=== PATIENT | female | born 1980 | race Caucasian/White ===

== ENCOUNTER 2018-08-21 17:17 | Emergency (ER) | payer BC, OTHER ==
[2018-08-21] MEDS ORDERED: MAGNE/ALUM HYDROXD 30 ML UCUP ONE (18:22)
[2018-08-21] MEDS ORDERED: LIDOCAINE VISCOUS 2% SOLN 15 ML UDC ONE (18:22)
[2018-08-21 18:28] LABS: Absolute Lymphocytes (CBC) 2.6 K/uL (0.7-4.9); Absolute Monocytes 0.4 K/uL (0.1-1.3); Absolute Neutrophil 3.2 K/uL (1.8-8.0); Eosinophils % 2.8 % (0-4.4); Hematocrit 38.7 % (36.0-45.0); MPV 8.9 fL (7.6-11.3); Monocytes % 6.9 % (3.3-12.3); RBC Red Blood Cell Count 4.38 M/uL (3.86-4.86)
[2018-08-21 18:45] LABS: Albumin 4.1 g/dL (3.4-5.0); Bilirubin Direct 0.2 mg/dL (0-0.2); Bilirubin Total 0.9 mg/dL (0.2-1.0); Potassium 3.8 mmol/L (3.5-5.1); Protein, Total 7.3 g/dL (6.4-8.2)
--- NOTE | 2018-08-21 19:29 | RAD REPORT ---
EXAM DESCRIPTION: CTAbdomen Pelvis W Contrast - 08/21/2018 7:14 pm CLINICAL HISTORY: Abdominal pain. epigastric LUQ pain. s/p gastric sleeve. COMPARISON: No comparisons TECHNIQUE: Biphasic CT imaging of the abdomen and pelvis was performed with 100 ml non-ionic IV cont rast. All CT scans are performed using dose optimization technique as appropriate and may include automated exposure control or mA/KV adjustment according to patient size. FINDINGS: The lung bases are clear.Postsurgical changes of a gastric sleeve. Cholecystectomy clips. The liver, spleen, pancreas, adrenal glands and right kidney are within normal limits. 8 mm stone is present mid-pole left kidney without hydronephrosis. No bowel obstruction, free air, free fluid or abscess. The appendix is normal. No evidence of signi ficant lymphadenopathy. No suspicious bony findings. IMPRESSION: No acute intra-abdominal or pelvic finding. 8 mm nonobstructing left renal stone.
--- NOTE | 2018-08-21 20:21 | ER ---
Nurse's Notes [facility] Name: Susy Vail Age: 37 yrs Sex: Female : 1980 Arrival Date: 08/21/2018 Time: 17:21 Bed 20 Private MD: Diagnosis: Peptic ulcer;left kidney stone, undescended Presentation: 08/21 17:31 Presenting complaint: Patient states: the Monday before i started feeling tw2 some pain on my LEFT side of my stomach, i thought it was trapped gas, Monday i could barely stand up straight, the pain has gotten worse whenever i try to eat or drink, i made an appt with my dr at the [facility] did lab work, i am leaving the country tomorrow, the pain has gotten better i was at a 7 in the most painful parts of this i am at a 2 now, clear liquid diet for 5 days, i had a gastric sleeve done in 2016, i just need to get checked out, 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 Transition of care: patient was not received from another setting of care. Onset of symptoms was August 21, 2018. Risk Assessment: Do you want to hurt yourself or someone else? Patient reports no desire to harm self or others. Initial Sepsis Screen: Does the patient meet any 2 criteria? No. Patient's initial sepsis screen is negative. Does the patient have a suspected source of infection? No. Patient's initial sepsis screen is negative. Care prior to arrival: None. 17:31 Method Of Arrival: Ambulatory tw2 17:31 Acuity: RUTH 3 tw2 Triage Assessment: 17:34 General: Appears in no apparent distress. Behavior is calm, cooperative, appropriate tw2 for age. Pain: Complains of pain in left upper quadrant and left lower quadrant. GI: Reports lower abdominal pain, upper abdominal pain, intolerance of food. 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 - Social history:: Smoking status: Patient/guardian denies using tobacco, Patient/guardian denies using alcohol. - Ebola Screening: : Patient negative for fever greater than or equal to 101.5 degrees Fahrenheit, and additional compatible Ebola Virus Disease symptoms Patient denies exposure to infectious person Patient denies travel to an Ebola-affected area in the 21 days before illness onset. Screenin:40 Abuse screen: Denies threats or abuse. Denies injuries from another. Nutritional hj screening: No deficits noted. Tuberculosis screening: No symptoms or risk factors identified. Fall Risk None identified. Assessment: 17:40 General: Appears in no apparent distress. uncomfortable, Behavior is calm, cooperative, hj appropriate for age. Pain: Complains of pain in left lower quadrant and left upper quadrant. Neuro: Level of Consciousness is awake, alert, obeys commands, Oriented to person, place, time, situation, Appropriate for age. Cardiovascular: Capillary refill < 3 seconds Patient's skin is warm and dry. Respiratory: Airway is patent Respiratory effort is even, unlabored, Respiratory pattern is regular, symmetrical. GI: Bowel sounds present X 4 quads. Abd is soft. : No signs and/or symptoms were reported regarding the genitourinary system. EENT: No signs and/or symptoms were reported regarding the EENT system. Derm: No signs and/or symptoms reported regarding the dermatologic system. Musculoskeletal: No signs and/or symptoms reported regarding the musculoskeletal system. 18:29 Reassessment: Patient and/or family updated on plan of care and expected duration. Pain hj level reassessed. Patient is alert, oriented x 3, equal unlabored respirations, skin warm/dry/pink. awaiting results and POC;. 19:19 Reassessment: Patient appears in no apparent distress at this time. Patient and/or cc3 family updated on plan of care and expected duration. Pain level reassessed. Patient is alert, oriented x 3, equal unlabored respirations, skin warm/dry/pink. Received this female patient from morning shift MEET Márquez as a case of abdominal pain, patient just came back from CT scan department awaiting result. With IV cannula gauge 20 at the right ACV saline locked. Patient denies pain at this time. 20:30 Reassessment: Patient appears in no apparent distress at this time. Patient and/or cc3 family updated on plan of care and expected duration. Pain level reassessed. Patient is alert, oriented x 3, equal unlabored respirations, skin warm/dry/pink. Dr. Neely discharged the patient home with prescription given. IV cannula removed and patient left ER vitally stable and ambulatory. Patient denies pain at this time. Patient states feeling better. Patient states symptoms have improved. Vital Signs: 17:34 BP 131 / 86; Pulse 56; Resp 17; Temp 97.6(TE); Pulse Ox 99% on R/A; Weight 73.94 kg tw2 (R); Height 5 ft. 7 in. (170.18 cm); Pain 2/10; 18:29 BP 128 / 85; Pulse 60; Resp 18; Pulse Ox 100% on R/A; hj 18:33 BP 120 / 64; Pulse 57; Resp 18; Pulse Ox 98% on R/A; hj 19:21 BP 112 / 82; Pulse 54; Resp 17 S; Temp 98.3(O); Pulse Ox 99% on R/A; cc3 20:14 BP 116 / 87; Pulse 59; Resp 16 S; Temp 98.3(O); Pulse Ox 99% on R/A; cc3 17:34 Body Mass Index 25.53 (73.94 kg, 170.18 cm) tw2 ED Course: 17:21 Patient arrived in ED. mr 17:34 Triage completed. tw2 17:34 Arm band placed on. tw2 17:37 Willi Esquivel, MEET is Primary Nurse. hj 17:39 Abdulaziz Neely MD is Attending Physician. ps1 17:41 Patient has correct armband on for positive identification. Placed in gown. Bed in low hj position. Call light in reach. Side rails up X 1. Adult w/ patient. 18:10 Radiology exam delayed due to lab results not completed at this time. (BUN/Creatinine) vm2 IV insertion attempt and/or patient not having appropriate IV at this time. 18:15 Initial lab(s) drawn, by me, sent to lab. Inserted saline lock: 20 gauge in right hj antecubital area, using aseptic technique. Blood collected. 18:27 Radiology exam delayed due to lab results not completed at this time. (BUN/Creatinine). vm2 19:14 CT Abd/Pelvis - IV Contrast Only In Process Unspecified. EDMS 20:19 Maninder Carcamo MD is Referral Physician. ps1 20:30 No provider procedures requiring assistance completed. IV discontinued, intact, cc3 bleeding controlled, No redness/swelling at site. Pressure dressing applied. Administered Medications: 18:03 Drug: GI Cocktail without - (Maalox Suspension 30 ml, Lidocaine Liquid 2 % 15 hj ml) Route: PO; 18:34 Follow up: Response: No adverse reaction hj Outcome: 20:20 Discharge ordered by MD. ps1 20:30 Discharged to home ambulatory. cc3 20:30 Condition: stable 20:30 Discharge instructions given to patient, Instructed on discharge instructions, follow up and referral plans. medication usage, Demonstrated understanding of instructions, follow-up care, medications, Prescriptions given X 3. 20:35 Patient left the ED. cc3 Signatures: Dispatcher [employer] EDKY Linda HarleyWilli RN RN hj Fernanda Varela RN RN 2 Zelda Holt 2 Abdulaziz Neely MD MD ps1 Lilly Marshall cc3 Corrections: (The following items were deleted from the chart) 19:41 19:21 BP 112 / 82; Pulse 54bpm; Resp 17bpm; Spontaneous; Pulse Ox 99% RA; Temp 97.8F cc3 Oral; cc3
--- NOTE | 2018-08-21 20:21 | EDPHYS ---
Physician Documentation [facility] Name: Susy Vail Age: 37 yrs Sex: Female : 1980 Arrival Date: 08/21/2018 Time: 17:21 Bed 20 Private MD: ED Physician Abdulaziz Neely HPI: 08/21 20:15 This 37 yrs old Female presents to ER via Ambulatory with complaints of ps1 Abdominal Pain. 20:15 patient states that the pain has gone on for over a couple of weeks. Patient went to [address] physician and had labs drawn and she put herself on a liquid diet. She states that the pain is localized to the epigastrium and LUQ. No blood in stools. Hx of gastric sleeve a couple of years ago. Patient states that the pain is worse with eating. 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 Pain is described as dullness. No medications have helped thus far. Not a drinker, smoker. . 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 - Social history:: Smoking status: Patient/guardian denies using tobacco, Patient/guardian denies using alcohol. - Ebola Screening: : Patient negative for fever greater than or equal to 101.5 degrees Fahrenheit, and additional compatible Ebola Virus Disease symptoms Patient denies exposure to infectious person Patient denies travel to an Ebola-affected area in the 21 days before illness onset. ROS: 20:15 Constitutional: Negative for fever, chills, and weight loss, Eyes: Negative for injury, ps1 pain, redness, and discharge, ENT: Negative for injury, pain, and discharge, Cardiovascular: Negative for chest pain, palpitations, and edema, Respiratory: Negative for shortness of breath, cough, wheezing, and pleuritic chest pain, Back: Negative for injury and pain, MS/Extremity: Negative for injury and deformity, Skin: Negative for injury, rash, and discoloration, Neuro: Negative for headache, weakness, numbness, tingling, and seizure. 20:15 Abdomen/GI: Positive for abdominal pain. Exam: 20:15 Constitutional: This is a well developed, well nourished patient who is awake, alert, ps1 and in no acute distress. Head/Face: Normocephalic, atraumatic. Eyes: Pupils equal round and reactive to light, extra-ocular motions intact. Lids and lashes normal. Conjunctiva and sclera are non-icteric and not injected. ENT: Nares patent. No nasal discharge, no septal abnormalities noted. Tympanic membranes are normal and external auditory canals are clear. Oropharynx with no redness, swelling, or masses, exudates, or evidence of obstruction, uvula midline. Mucous membranes moist. Chest/axilla: Normal chest wall appearance and motion. Nontender with no deformity. No lesions are appreciated. Cardiovascular: Regular rate and rhythm. No gallops, murmurs, or rubs. Normal PMI, no JVD. No pulse deficits. Respiratory: Lungs have equal breath sounds bilaterally, clear to auscultation and percussion. No rales, rhonchi or wheezes noted. No increased work of breathing, no retractions or nasal flaring. Skin: Warm, dry with normal turgor. Normal color with no rashes, no lesions, and no evidence of cellulitis. MS/ Extremity: Pulses equal, no cyanosis. Neurovascular intact. Full, normal range of motion. Neuro: Awake and alert, GCS 15, oriented to person, place, time, and situation. Cranial nerves II-XII grossly intact. Sensory grossly intact. 20:15 Abdomen/GI: Inspection: abdomen appears normal, Bowel sounds: normal, Palpation: mild abdominal tenderness, in the epigastric area and left upper quadrant, post surgical scar. striations. Vital Signs: 17:34 BP 131 / 86; Pulse 56; Resp 17; Temp 97.6(TE); Pulse Ox 99% on R/A; Weight 73.94 kg tw2 (R); Height 5 ft. 7 in. (170.18 cm); Pain 2/10; 18:29 BP 128 / 85; Pulse 60; Resp 18; Pulse Ox 100% on R/A; hj 18:33 BP 120 / 64; Pulse 57; Resp 18; Pulse Ox 98% on R/A; hj 19:21 BP 112 / 82; Pulse 54; Resp 17 S; Temp 98.3(O); Pulse Ox 99% on R/A; cc3 20:14 BP 116 / 87; Pulse 59; Resp 16 S; Temp 98.3(O); Pulse Ox 99% on R/A; cc3 17:34 Body Mass Index 25.53 (73.94 kg, 170.18 cm) tw2 MDM: 18:02 Patient medically screened. ps1 20:18 Data reviewed: vital signs, nurses notes, lab test result(s), radiologic studies, and ps1 as a result, I will discharge patient. Counseling: I had a detailed discussion with the patient and/or guardian regarding: the historical points, exam findings, and any diagnostic results supporting the discharge/admit diagnosis, lab results, radiology results, the need for outpatient follow up, a peer educator. 08/21 18:02 Order name: Creatinine for Radiology; Complete Time: 18:51 [facility] 08/21 18:02 Order name: CBC with Diff; Complete Time: 18:51 [facility] 08/21 18:02 Order name: Hepatic Function; Complete Time: 18:51 [facility] 08/21 18:02 Order name: Lipase; Complete Time: 18:51 [facility] 08/21 18:02 Order name: CMP; Complete Time: 18:51 [facility] 08/21 18:02 Order name: CT Abd/Pelvis - IV Contrast Only; Complete Time: 19:50 [facility] 08/21 17:46 Order name: Urine Dipstick-Ancillary (obtain specimen); Complete Time: 17:59 08/21 17:46 Order name: Urine Test (obtain specimen); Complete Time: 17:59 08/21 18:02 Order name: IV Saline Lock; Complete Time: 18:16 [facility] 08/21 18:02 Order name: Labs collected and sent; Complete Time: 18:16 ps1 Administered Medications: 18:03 Drug: GI Cocktail without - (Maalox Suspension 30 ml, Lidocaine Liquid 2 % 15 hj ml) Route: PO; 18:34 Follow up: Response: No adverse reaction Disposition: 08/21/18 20:20 Discharged to Home. Impression: Peptic ulcer, left kidney stone, undescended. - Condition is Stable. - Discharge Instructions: Peptic Ulcer, Kidney Stones, Syyf-nv-Bzow, Food Choices for Peptic Ulcer Disease. - Prescriptions for omeprazole 40 mg Oral capsule,delayed release(DR/EC) - take 1 capsule by ORAL route once daily; 30 capsule. Bentyl 10 mg Oral Capsule - take 1 capsule by ORAL route every 6 hours As needed; 40 capsule. Carafate 1 gram Oral Tablet - take 1 tablet by ORAL route 4 times per day take on an empty stomach, beginning on waking and last dose at bedtime; 100 tablet. - Medication Reconciliation Form, Thank You Letter, Antibiotic Education, Prescription Opioid Use form. - Follow up: Maninder Carcamo MD; When: As needed; Reason: Further diagnostic work-up, Recheck today's complaints, Continuance of care, Re-evaluation by your physician. - Problem is new. - Symptoms are unchanged. Signatures: Dispatcher [employer] EDMS Willi Esquivel RN RN hj Fernanda Varela RN RN tw2 Abdulaziz Neely MD MD ps1 Lilly Marshall cc3 Corrections: (The following items were deleted from the chart) 20:35 20:20 08/21/2018 20:20 Discharged to Home. Impression: Peptic ulcer; left kidney stone, cc3 undescended. Condition is Stable. Forms are Medication Reconciliation Form, Thank You Letter, Antibiotic Education, Prescription Opioid Use. Follow up: Maninder Carcamo; When: As needed; Reason: Further diagnostic work-up, Recheck today's complaints, Continuance of care, Re-evaluation by your physician. Problem is new. Symptoms are unchanged. ps1
== END 2018-08-21 20:35 | disposition home or self-care (01) ==
LOC: ER 17:17
DX: N20.0 Calculus of kidney (principal); K27.9 Peptic ulcer, site unspecified, unspecified as acute or chronic, without hemorrhage or perforation
CPT/HCPCS: 36415; 74177; 80053; 80076; 83690; 85025; 99284; Q9967

== ENCOUNTER 2021-10-12 19:11 | Emergency (ER) | payer BC, OTHER ==
--- OUTSIDE RECORDS SUMMARY | 2021-10-12 19:14 | XMS REPORT | Continuity of Care Document ---
:1980 Author Organization [facility] t Address 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 00:00: [address] Branch Postmenopa Postmenopa Disease Active U nivers usal HRT usal HRT 3-22 ity of (hormone (hormone 00:00: [place] replacemen replacemen 00 Me dical t therapy) t therapy) Br anch Uterus, Uterus, Disease Active Univers adenomyosi adenomyosi 3-22 it y of s s 00:00: [address] Branch History of History of Disease Active U nivers breast breast 3-22 ity of biopsy biopsy 00:00: [address] Family Family Disease Active Univers history of history of 3-22 [place] of malignant [place] of breast of breast Bran ch Allergies, Adverse Reactions, Alerts This patient has no known allergies or adverse reactions. Social History Social Habit Start Date Stop Date Quantity Comments Source History SDOH University o f Alcohol Frequency [place] [facility] History SDOH University o f Alcohol Std [place] [facility] Drinks [facility] History [facility] University o f Alcohol Binge [place] [facility] Alcohol intake 2021-07-06 2021-07-06 Current drinker Unive rsity of 00:00:00 00:00:00 of alcohol [place] [facility] (finding) Branch Exposure to 2021-06-03 2021-07-03 Not sure [facility] SARS-CoV-2 00:00:00 08:33:00 [facility] (event) Branch Alcohol Comment 2019-03-25 2019-03-25 occ Universit y of 00:00:00 00:00:00 [facility] Tobacco use and 2019-03-25 2019-03-25 Never used Universit y of exposure 00:00:00 00:00:00 [facility] Sex Ass[birth year] At [birth year] Universit y of 00:00:00 00:00:00 [facility] Smoking Status Start Date Stop Date Source Never smoker [facility] Medications Ordered Filled Start Stop Current Ordering Indication Dosage Frequency Signature Comments Components Source Medication Medication Date Date Medication? Clinician (SIG) Name Name desog-e.est Yes [id number] 1{tbl} Take 1 Univers radioL/e.es 6-28 tablet by ity of tradioL 00:00: mouth [place] (VOLNEA, 00 daily. Medical 28,) Branch 0.15-0.02 mgx21 /0.01 mg x 5 per tablet desog-e.est Yes [id number] 1{tbl} Take 1 Univers radioL/e.es 3-22 tablet by ity of tradioL 00:00: mouth [place] (MIRCETTE, 00 daily. Medical 28,) Branch 0.15-0.02 mgx21 /0.01 mg x 5 per tablet desog-e.est 2021- No [id number] 1{tbl} Take 1 Univers radioL/e.es 3-22 06-28 tablet by it y of tradioL 00:00: 00:00 mouth [place] (M[place], 00 :00 daily. 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 2021- No [id number] TAKE 1 Univers REL-ETHINYL 2-18 06-08 TABLET BY it y of ESTRADIOL 00:00: 00:00 MOUTH [place] 0.1-20 00 :00 EVERY DAY Medical mg-mcg per Branch tablet Immunizations Ordered Filled Immunization Date Status Comments Sour e Immunization Name Name SARS-COV-2 COVID-19 2020-06-12 Completed Unive rsity of MODERNA VACCINE 00:00:00 [facility] SARS-COV-2 COVID-19 2020-06-12 Completed Unive rsity of MODERNA VACCINE 00:00:00 [facility] SARS-COV-2 COVID-19 2020-05-15 Completed Unive rsity of MODERNA VACCINE 00:00:00 [facility] SARS-COV-2 COVID-19 2020-05-15 Completed Unive rsity of MODERNA VACCINE 00:00:00 [facility] Influenza Virus 2019-02-06 Completed Universit y of Vaccine Quad .5 mL 00:00:00 [facility] IM 6+ MO Branch Influenza Virus 2019-02-06 Completed Universit y of Vaccine Quad .5 mL 00:00:00 [facility] 6+ MO Branch Vital Signs Vital Name Observation Time Observation Value Comments Source Systolic blood 2021-06-08 19:22:00 118 mm[Hg] Univer sity of [place] pressure [facility] Diastolic blood 2021-06-08 19:22:00 70 mm[Hg] Unive rsity of [facility] Heart rate 2021-06-08 19:22:00 56 /min [facility] Body weight 2021-06-08 19:22:[address] [facility] BMI 2021-06-08 19:22:00 26.89 kg/m2 [facility] Procedures This patient has no known procedures. Encounters Start End Encounter Admission Attending Care Care Encounter Source Date/Time Date/Time Type Type Clinicians Facility Department ID 2021-08-[address] [facility] [id number] Common 16:16:02 Tonie Spirit - [facility] 2021-09-14 2021-09-14 VANNESA Anderson [id number] Univers 00:00:00 00:00:00 Edil [facility] [id number] ity of CLEAR [id number] Trupti FREIRE [id number] [place] [address] Branch OFFICE BUILDING 2021-08-31 2021-08-31 ambulatory [facility] [id number] Common 00:00:00 00:00:00 [facility] 2021-06-08 2021-06-[address] [facility] [id number] Univers 14:00:00 15:36:28 Visit Edil [facility] [id number] ity of CLEAR [id number] Trupti FREIRE [id number] [place] [address] Branch OFFICE BUILDING Results This patient has no known results.
[2021-10-12] MEDS ORDERED: HYDROCODONE/APAP 10/325 TAB ONE (19:49)
--- NOTE | 2021-10-12 20:22 | RAD REPORT ---
EXAM DESCRIPTION: RAD - Wrist Left 3 View - 10/12/2021 8:08 pm CLINICAL HISTORY: PAINfollowing fall COMPARISON: No comparisons FINDINGS: No gross fracture deformity seen. There are faint transverse lucent lines in the distal ra dius. Fracture is not entirely excluded. There is no dislocation or periosteal reaction noted. No uln a injury. Carpal bones are unremarkable. No foreign body or other soft tissue abnormality. IMPRESSION: No gross fracture deformity seen. Subtle lucent lines in the distal radius are suspicious for nondisplaced, nonangulated fracture. Repe at imaging in 5-7 days could be performed to re-evaluate for possible fracture.
[2021-10-12] MEDS ORDERED: KETOROLAC 30 MG/ML INJ ONE ×2 (21:23→21:24)
--- NOTE | 2021-10-12 22:04 | RAD REPORT ---
EXAM DESCRIPTION: RAD - Elbow Left 3 View - 10/12/2021 9:49 pm CLINICAL HISTORY: PAINfollowing fall COMPARISON: None. FINDINGS: Fracture is present traversing the radial head including the articular surface. Displaceme nt is less than 1 millimeter. No angulation deformity. Ulna and humerus show no acute findings. No el evated posterior fat pad. There is no dislocation or periosteal reaction noted. No foreign body or o ther soft tissue abnormality. IMPRESSION: Left radial head fracture with no significant displacement no angulation.
--- NOTE | 2021-10-12 22:34 | ER ---
Nurse's Notes [facility] Name: Susy Vail Age: 41 yrs Sex: Female : 1980 Arrival Date: 10/12/2021 Time: 19:16 Bed DIS5 Private MD: Diagnosis: Closed nondisplaced fracture of left distal radius;Closed left radial head fracture with no significant displacement or angulation Presentation: 10/12 19:30 Chief complaint: Left wrist pain after mechanical fall onto outstretched hand. hb Coronavirus screen: At this time, the client does not indicate any symptoms associated with coronavirus-19. Ebola Screen: No symptoms or risks identified at this time. Initial Sepsis Screen: Does the patient meet any 2 criteria? No. Patient's initial sepsis screen is negative. Does the patient have a suspected source of infection? No. Patient's initial sepsis screen is negative. Risk Assessment: Do you want to hurt yourself or someone else? Patient reports no desire to harm self or others. Onset of symptoms was October 12, 2021. 19:30 Method Of Arrival: Ambulatory hb 19:30 Acuity: RUTH 4 hb Triage Assessment: 19:32 General: Appears in no apparent distress. Behavior is calm, cooperative. Pain: Pain hb currently is 7 out of 10 on a pain scale. Neuro: Level of Consciousness is awake, alert, obeys commands, Oriented to person, place, time, situation. Cardiovascular: Patient's skin is warm and dry. Respiratory: Respiratory effort is even, unlabored, Respiratory pattern is regular, symmetrical. 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 - Social history:: Smoking status: Patient denies any tobacco usage or history of. Screenin:31 Abuse screen: Denies threats or abuse. Denies injuries from another. Nutritional kd3 screening: No deficits noted. Tuberculosis screening: No symptoms or risk factors identified. Fall Risk None identified. Vital Signs: 19:30 BP 127 / 77; Pulse 74; Resp 16; Temp 98.1; Pulse Ox 100% on R/A; Weight 72.57 kg; hb Height 5 ft. 7 in. (170.18 cm); Pain 7/10; 22:30 Pulse 61; Resp 18; Pulse Ox 99% on R/A; kd3 19:30 Body Mass Index 25.06 (72.57 kg, 170.18 cm) hb ED Course: 19:16 Patient arrived in ED. ja2 19:31 Triage completed. hb 19:34 Arm band placed on. hb 19:37 Jhoan Cancino NP is PHCP. pm1 19:37 Fletcher Zamudio MD is Attending Physician. pm1 20:09 Wrist Left (3 View) XRAY In Process Unspecified. EDMS 20:50 Jessi Christianson RN is Primary Nurse. kd3 21:50 Elbow Left 3 View XRAY In Process Unspecified. EDMS 22:31 Patient has correct armband on for positive identification. kd3 22:31 Assist provider with fracture care of left arm. Patient did not have IV access during kd3 this emergency room visit. Administered Medications: 19:40 Drug: [place] (HYDROcodone-acetaminophen) 10 mg-325 mg 1 tabs Route: PO; hb 20:50 Follow up: Response: No adverse reaction hb 22:43 Follow up: Response: No adverse reaction kd3 21:20 Drug: Ketorolac 60 mg Route: IM; Site: right deltoid; kd3 22:43 Follow up: Response: No adverse reaction kd3 Medication: 22:31 VIS not applicable for this client. kd3 Outcome: 22:31 Discharged to home ambulatory. kd3 22:31 Condition: stable 22:32 Discharge ordered by . pm1 22:43 Discharge instructions given to patient, family, Instructed on discharge instructions, kd3 follow up and referral plans. medication usage, Demonstrated understanding of instructions, follow-up care, medications, Prescriptions given X 1. 22:43 Patient left the ED. kd3 Signatures: Dispatcher [employer] EDMS Jhoan Cancino, JONY LABOR RELATIONS ANALYST pm1 Rehana Celaya RN RN [place] 2 Jessi Christianson RN RN kd3
--- NOTE | 2021-10-12 22:34 | EDPHYS ---
Physician Documentation [facility] Name: Susy Vail Age: 41 yrs Sex: Female : 1980 Arrival Date: 10/12/2021 Time: 19:16 Bed DIS5 Private MD: ED Physician Fletcher Zamudio HPI: 10/12 19:39 This 41 yrs old Female presents to ER via Ambulatory with complaints of Wrist Injury. pm1 19:39 The patient or guardian reports pain. The complaints affect the left wrist diffusely. pm1 Context: The problem was sustained outdoors, resulted from a fall. Onset: The symptoms/episode began/occurred just prior to arrival. Modifying factors: The symptoms are alleviated by holding still, the symptoms are aggravated by movement. Associated signs and symptoms: Pertinent negatives: Head injury, headache, neck pain, LOC. The patient has not experienced similar symptoms in the past. The patient has not recently seen a physician. Patient was rollerblading and fell without wrist guards. Fell with left arm outstretched and presenting with pain to left wrist. 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 - Social history:: Smoking status: Patient denies any tobacco usage or history of. ROS: 19:39 Constitutional: Negative for fever, chills, and weight loss, Cardiovascular: Negative pm1 for chest pain, palpitations, and edema, Respiratory: Negative for shortness of breath, cough, wheezing, and pleuritic chest pain, Back: Negative for injury and pain. 19:39 Skin: Negative for injury, rash, and discoloration, Neuro: Negative for headache, weakness, numbness, tingling, and seizure. 19:39 MS/extremity: Positive for pain, of the left wrist, Negative for decreased range of motion, deformity. 19:39 All other systems are negative. Exam: 19:39 Hand exam: Exam is positive for tenderness, ROM: full active range of motion, in the pm1 left wrist, full passive range of motion, in the left wrist, Circulation is intact in all extremities. 19:39 Skin: Exam negative for acute changes. 19:39 Constitutional: This is a well developed, well nourished patient who is awake, alert, and in no acute distress. Head/Face: Normocephalic, atraumatic. 19:39 Cardiovascular: Exam negative for acute changes. 19:39 Respiratory: Exam negative for acute changes, respiratory distress, shortness of breath. 19:39 Neuro: Exam negative for acute changes, Orientation: is normal, Mentation: is normal, Motor: moves all fours. Vital Signs: 19:30 BP 127 / 77; Pulse 74; Resp 16; Temp 98.1; Pulse Ox 100% on R/A; Weight 72.57 kg; hb Height 5 ft. 7 in. (170.18 cm); Pain 7/10; 22:30 Pulse 61; Resp 18; Pulse Ox 99% on R/A; kd3 19:30 Body Mass Index 25.06 (72.57 kg, 170.18 cm) hb MDM: 19:40 Patient medically screened. pm1 20:52 ED course: Patient reports pain to left elbow with pain with attempting to extending to pm1 full range of motion. 22:29 Data reviewed: vital signs. Data interpreted: Pulse oximetry: on room air is 100 %. pm1 Interpretation: normal. Counseling: I had a detailed discussion with the patient and/or guardian regarding: the historical points, exam findings, and any diagnostic results supporting the discharge/admit diagnosis, radiology results, the need for outpatient follow up, for definitive care, a orthopedic surgeon, to return to the emergency department if symptoms worsen or persist or if there are any questions or concerns that arise at home. 10/12 19:34 Order name: Wrist Left (3 View) XRAY; Complete Time: 20:46 hb 10/12 20:52 Order name: Elbow Left 3 View XRAY; Complete Time: 22:06 pm1 10/12 19:39 Order name: Ice pack; Complete Time: 19:40 pm1 10/12 20:47 Order name: Sugar Tong Forearm Splint; Complete Time: 22:08 pm1 10/12 20:54 Order name: Sling; Complete Time: 22:08 pm1 Administered Medications: 19:40 Drug: [place] (HYDROcodone-acetaminophen) 10 mg-325 mg 1 tabs Route: PO; hb 20:50 Follow up: Response: No adverse reaction hb 22:43 Follow up: Response: No adverse reaction kd3 21:20 Drug: Ketorolac 60 mg Route: IM; Site: right deltoid; kd3 22:43 Follow up: Response: No adverse reaction kd3 Disposition: 23:46 Co-signature as Attending Physician, Fletcher Zamudio MD I agree with the assessment and kdr plan of care. Disposition Summary: 10/12/21 22:32 Discharge Ordered Location: Home pm1 Problem: new pm1 Symptoms: have improved pm1 Condition: Stable pm1 Diagnosis - Closed nondisplaced fracture of left distal radius pm1 - Closed left radial head fracture with no significant displacement or angulation pm1 Followup: pm1 - With: Emergency Department - When: As needed - Reason: Worsening of condition Followup: pm1 - With: Private Physician - When: 2 - 3 days - Reason: Recheck today's complaints, Continuance of care, Re-evaluation by your physician Discharge Instructions: - Discharge Summary Sheet pm1 - Wrist Fracture Treated With Immobilization pm1 - Radial Head Elbow Fracture Rehab-SportsMed pm1 Forms: - Medication Reconciliation Form pm1 - Thank You Letter pm1 - Antibiotic Education pm1 - Prescription Opioid Use pm1 Prescriptions: - Tylenol-Codeine #3 300 mg-30 mg Oral - take 2 tablet by ORAL route every 6 hours As needed; 20 tablet; Refills: 0, pm1 Product Selection Permitted Signatures: Dispatcher [employer] EDFletcher Upton MD MD kdr Marinas, Patrick, NP ETL ANALYST DEVELOPER pm1 Rehana Celaya RN RN Jessi Christianson RN RN kd3
[2021-10-12 23:13] VITALS: BP 127/77; TEMP 98.1
[2021-10-12 23:15] VITALS: O2SAT 99
== END 2021-10-12 22:43 | disposition home or self-care (01) ==
LOC: ER 19:11
PROC: 2W3DX1Z Immobilization of Left Lower Arm using Splint (ICD-10-PCS; principal; 2021-10-12)
DX: S52.502A Unspecified fracture of the lower end of left radius, initial encounter for closed fracture (principal); S52.125A Nondisplaced fracture of head of left radius, initial encounter for closed fracture
CPT/HCPCS: 96372; 99284